=== PATIENT | male | born 1960 | race Caucasian/White ===

== ENCOUNTER 2021-06-30 21:09 | Emergency (ER) | payer OTHER ==
[~2021-06-30 21:09] MED LIST: AMLODIPINE BESYL5 MG PO; ASPIRIN EC81 MG PO; ATORVASTATIN CA20 MG PO; BENTYL20 MG PO; CARVEDILOL12.5 MG PO; DESONIDE15 GM TP; FARXIGA5 MG PO; HUMALOG100 UNIT/3 SQ; IBUPROFEN800 MG PO; IMDUR ER TAB 3030 MG PO; JANUMET XR 50-1 EACH PO; LANTUS INS100 UTS/M1 SQ; LANTUS SOL100 UNIT/1 SQ; LIPITOR80 MG PO; LISINOPRIL-HCT1 EAC1 PO; LISINOPRIL10 MG PO; METFORMIN HCL1000 MG PO; METOPROLOL SUC100 MG PO; NEURONTIN 300300 MG PO; NIZORAL 2% CREA15 GM EXT; OMEPRAZOLE40 MG PO; PHENERGAN 25 MG25 M1 PO; ZYRTEC10 MG PO
[2021-06-30 22:02] LABS: HEMOGLOBIN 15.7 gm/dl (14.0-17.5); RED BLOOD COUNT 5.29 M/UL (4.20-5.50); WHITE BLOOD COUNT 11.4 K/UL (4.5-11.0)
[2021-06-30 22:21] LABS: BUN/CREATININE RATIO 37 (0-10)
== END 2021-07-01 09:59 | disposition home or self-care (01) ==
LOC: ER1 21:09
PROVIDERS: Physician Assistant Medical
DX: I11.0 Hypertensive heart disease with heart failure (principal); R20.2 Paresthesia of skin; I50.9 Heart failure, unspecified; E11.9 Type 2 diabetes mellitus without complications; J44.9 Chronic obstructive pulmonary disease, unspecified; E78.5 Hyperlipidemia, unspecified
CPT/HCPCS: 70450; 71046; 80053; 81001; 82550; 82553; 82962; 83874; 83880; 84439; 84443; 84484; 85025; 93005; 99284